=== PATIENT | male | born 1970 | race Caucasian/White ===

== ENCOUNTER 2017-11-16 12:50 | Inpatient (IN) | payer MEDICAID ==
[~2017-11-16] VITALS: Ht 177.8 cm; Wt 46.5 kg
[2017-11-16] MEDS ORDERED: TRAM50TA2 PO (13:23)
[2017-11-16] MEDS ORDERED: IBUP-1984 PO (13:23)
[2017-11-16] MEDS ORDERED: LOSA25TA96 PO (13:23)
[2017-11-16] MEDS ORDERED: ACET-2615 PO (13:23)
[2017-11-16] MEDS ORDERED: HYDR-569 PO (13:23)
[2017-11-16 13:55] LABS: BASOPHILS % (AUTO) 0.3 % (0-1); EOSINOPHILS # (AUTO) 0.2 X10'3 (0-0.9); EOSINOPHILS % (AUTO) 2.8 % (0-6); LYMPHOCYTES # (AUTO) 2.3 X10'3 (1.1-4.8); LYMPHOCYTES % (AUTO) 30.6 % (21-51); MEAN CORPUSCULAR HEMOGLOBIN 29.4 PG (27.0-31.0); MEAN CORPUSCULAR HGB CONC 34.3 % (33.0-36.5); MEAN CORPUSCULAR VOLUME 85.8 FL (78-98); MEAN PLATELET VOLUME 7.7 FL (7.4-10.4); MONOCYTES # (AUTO) 0.4 X10'3 (0-0.9); MONOCYTES % (AUTO) 5.4 % (2-12); NEUTROPHILS # (AUTO) 4.5 X10'3 (1.8-7.7); NEUTROPHILS % (AUTO) 60.9 % (42-75); PRE OP HEMOGLOBIN 14.7 g/dL (14.0-17.9); PRE OP PLATELET COUNT 251 X10'3 (140-440); RED BLOOD COUNT 5.01 X10'6 (4.70-6.10); RED CELL DISTRIBUTION WIDTH 13.4 % (11.5-14.5)
[2017-11-16 14:11] LABS: ALBUMIN 4.1 G/DL (3.4-5.0); ALBUMIN/GLOBULIN RATIO 1.1 (1.1-1.5); ALKALINE PHOSPHATASE 70 IU/L (46-116); BLOOD UREA NITROGEN 16 MG/DL (7-18); CALCIUM 9.4 MG/DL (8.5-10.1); CHLORIDE 103 MMOL/L (99-107); CREATININE 1.07 MG/DL (0.60-1.10); PRE OP ALT 40 U/L (30-65); PRE OP ANION GAP 10 (8-16); PRE OP AST 21 U/L (10-37); PRE OP BILIRUB, TOTAL 0.5 MG/DL (0.0-1.0); PRE OP GLUCOSE 92 MG/DL (70-104); PRE OP POTASSIUM 4.2 MMOL/L (3.4-5.1); PRE OP SODIUM 143 MMOL/L (135-145); TOTAL CARBON DIOXIDE 29.6 MMOL/L (24-32); TOTAL PROTEIN 7.7 G/DL (6.4-8.2); eGFR 74 ML/MIN
[2017-11-16 14:23] LABS: HEMOGLOBIN A1C 6.3 % (4.5-6.2)
[2017-11-17] VITALS (17 sets, daily range): BP systolic 113–149; BP diastolic 67–99
[2017-11-17] MEDS ORDERED: ringers solution, lacted 1,000 ML IV SCH ×2 (05:00→08:41)
[2017-11-17] MEDS ORDERED: TRANEXAMIC ACID IV ONE ×3 (05:30→17:30)
[2017-11-17] MEDS ORDERED: VANCOMYCIN INJ 1000 MG in NORMAL SALINE 250ml IV.SOLN IV ONE (05:30)
[2017-11-17] MEDS ORDERED: ceFAZolin inj. 2,000 MG in dextrose 5%-water 100 ML IV ONE (05:30)
[2017-11-17] MEDS ORDERED: NORMAL SALINE IV ONE ×3 (05:30→17:30)
[2017-11-17] MEDS ORDERED: famotidine 20mg tablet PO ONE (05:30)
[2017-11-17] MEDS ORDERED: ondansetron/PF 4mg/2ml inj IV PRN ×2 (08:45→14:35)
[2017-11-17] MEDS ORDERED: morphine 4 MG/ML inj SYRINge IV PRN ×2 (08:45)
[2017-11-17] MEDS ORDERED: meperidine/PF 50mg/ml syringe IV PRN ×3 (08:45)
[2017-11-17] MEDS ORDERED: proCHLORperazine 10 MG/2 ml inj IV PRN (08:45)
[2017-11-17] MEDS ORDERED: LIDOcaine 1% (10mg/ml) 2ml vial ONE (08:53)
[2017-11-17] MEDS ORDERED: ketorolac trometh. 30mg/ml inj. ONE (09:51)
[2017-11-17] MEDS ORDERED: vancomycin 1,000mg inj ONE (09:51)
[2017-11-17] MEDS ORDERED: ROPIVAcaine 0.5% (5mg/ml) 30ml vial ONE ×2 (09:51→14:16)
[2017-11-17] MEDS ORDERED: fentaNYL/PF 50MCG/1 ML 2ML syringe ONE (11:29)
[2017-11-17] MEDS ORDERED: MIDAZolam 1mg/ml 10ml vial ONE (11:29)
[2017-11-17] MEDS ORDERED: acetaminophen 325mg tablet PO PRN (14:35)
[2017-11-17] MEDS ORDERED: HYDROmorphone inj. 0.5 MG/0.5 ML DISP.SYRIN IV PRN ×2 (14:35)
[2017-11-17] MEDS ORDERED: magnesium hydroxide 30ml (MOM) UD suspension PO PRN (14:35)
[2017-11-17] MEDS ORDERED: diphenhydrAMINE 25mg capsule PO PRN ×2 (14:35)
[2017-11-17] MEDS ORDERED: bisacodyl 10mg suppository rectal RC PRN (14:35)
[2017-11-17] MEDS: ceFAZolin 1GM/D5W- ADD-VANTAGE 50 ML IV SCH (16:10)
[2017-11-17] MEDS: potassium cl 20mEq in 1/2 NS 1,000 ML IV SCH (16:11)
[2017-11-17] MEDS ORDERED: traMADol 50MG tablet PO PRN (17:15)
[2017-11-17] MEDS ORDERED: vancomycin/NS 1 GM ADD-VANTAGE 250 ML IV SCH (20:00)
[2017-11-17] MEDS: acetaminophen 325mg tablet PO SCH (20:09)
[2017-11-17] MEDS: gabapentin 300mg capsule PO SCH (20:09)
[2017-11-17] MEDS: ketorolac tromethamine 15mg/ml inj. IV SCH (20:10)
[2017-11-17] MEDS: sennosides 8.6mg tablet PO SCH (20:10)
[2017-11-17] MEDS: losartan 25mg tablet PO SCH (20:10)
[2017-11-18] MEDS: potassium cl 20mEq in 1/2 NS 1,000 ML IV SCH ×2 (00:23→06:34)
[2017-11-18] MEDS: ceFAZolin 1GM/D5W- ADD-VANTAGE 50 ML IV SCH (00:23)
[2017-11-18 02:00] VITALS: BP 123/74
[2017-11-18] MEDS: acetaminophen 325mg tablet PO SCH ×4 (02:12→21:39)
[2017-11-18] MEDS: ketorolac tromethamine 15mg/ml inj. IV SCH ×4 (02:12→21:40)
[2017-11-18 05:00] VITALS: BP 131/73
[2017-11-18] MEDS: oxyCODONE IR 5mg (immed. release) tablet PO PRN ×3 (05:16→16:43)
[2017-11-18 06:18] LABS: ANION GAP 9 (8-16); CHLORIDE 106 MMOL/L (99-107); POTASSIUM 4.2 MMOL/L (3.5-5.1); SODIUM 141 MMOL/L (135-145)
[2017-11-18 07:02] LABS: BASOPHILS % (AUTO) 0 % (0-1); EOSINOPHILS % (AUTO) 0.1 % (0-6); HEMOGLOBIN 12.4 g/dl (14.0-17.9); LYMPHOCYTES # (AUTO) 1.4 X10'3 (1.1-4.8); LYMPHOCYTES % (AUTO) 12.8 % (21-51); MEAN CORPUSCULAR HGB CONC 35.3 % (33.0-36.5); MEAN PLATELET VOLUME 8.3 FL (7.4-10.4); MONOCYTES # (AUTO) 0.6 X10'3 (0-0.9); MONOCYTES % (AUTO) 5.8 % (2-12); NEUTROPHILS # (AUTO) 8.9 X10'3 (1.8-7.7); NEUTROPHILS % (AUTO) 81.3 % (42-75); PLATELET COUNT 230 X10'3 (140-440); RED BLOOD COUNT 4.11 X10'6 (4.70-6.10); RED CELL DISTRIBUTION WIDTH 12.7 % (11.5-14.5); WHITE BLOOD COUNT 10.9 X10'3 (4.5-11.0)
[2017-11-18] MEDS: gabapentin 300mg capsule PO SCH ×3 (08:35→21:39)
[2017-11-18] MEDS: aspirin 325mg tablet PO SCH (08:36)
[2017-11-18 10:00] VITALS: BP 116/79
[2017-11-18 14:00] VITALS: BP 121/77
[2017-11-18 18:00] VITALS: BP 136/79
[2017-11-18] MEDS: sennosides 8.6mg tablet PO SCH (21:00)
[2017-11-18] MEDS: losartan 25mg tablet PO SCH (21:39)
[2017-11-18 23:00] VITALS: BP 130/93
[2017-11-19] VITALS (19 sets, daily range): BP systolic 88–145; BP diastolic 52–101
[2017-11-19] MEDS: acetaminophen 325mg tablet PO SCH ×3 (02:28→13:16)
[2017-11-19] MEDS: ketorolac tromethamine 15mg/ml inj. IV SCH (02:28)
[2017-11-19] MEDS: oxyCODONE IR 5mg (immed. release) tablet PO PRN ×2 (05:20→23:16)
[2017-11-19 05:27] LABS: BASOPHILS % (AUTO) 0.5 % (0-1); EOSINOPHILS # (AUTO) 0.2 X10'3 (0-0.9); EOSINOPHILS % (AUTO) 3.1 % (0-6); HEMATOCRIT 29.4 % (42.0-52.0); HEMOGLOBIN 10.3 g/dl (14.0-17.9); LYMPHOCYTES # (AUTO) 2.1 X10'3 (1.1-4.8); MEAN CORPUSCULAR HEMOGLOBIN 29.8 PG (27.0-31.0); MEAN CORPUSCULAR HGB CONC 35.1 % (33.0-36.5); MEAN CORPUSCULAR VOLUME 84.9 FL (78-98); MEAN PLATELET VOLUME 7.3 FL (7.4-10.4); MONOCYTES # (AUTO) 0.5 X10'3 (0-0.9); MONOCYTES % (AUTO) 6.8 % (2-12); NEUTROPHILS # (AUTO) 4.1 X10'3 (1.8-7.7); NEUTROPHILS % (AUTO) 58.6 % (42-75); PLATELET COUNT 214 X10'3 (140-440); RED BLOOD COUNT 3.46 X10'6 (4.70-6.10); RED CELL DISTRIBUTION WIDTH 13.7 % (11.5-14.5); WHITE BLOOD COUNT 6.9 X10'3 (4.5-11.0)
[2017-11-19] MEDS: aspirin 325mg tablet PO SCH (07:33)
[2017-11-19] MEDS: gabapentin 300mg capsule PO SCH ×3 (07:33→21:42)
[2017-11-19] MEDS: celeCOXIB 100mg capsule PO SCH ×2 (07:34→20:00)
[2017-11-19] MEDS ORDERED: acetaminophen 325mg tablet PO PRN (14:35)
[2017-11-19] MEDS ORDERED: ketorolac trometh. 30mg/ml inj. ONE (14:49)
[2017-11-19] MEDS ORDERED: ROPIVAcaine 0.5% (5mg/ml) 30ml vial ONE (14:50)
[2017-11-19] MEDS ORDERED: vancomycin 1,000mg inj ONE ×2 (14:50→17:07)
[2017-11-19] MEDS ORDERED: ringers solution, lacted 1,000 ML IV SCH (16:02)
[2017-11-19] MEDS ORDERED: meperidine/PF 50mg/ml syringe IV PRN ×3 (16:05)
[2017-11-19] MEDS ORDERED: ondansetron/PF 4mg/2ml inj IV PRN (16:05)
[2017-11-19] MEDS ORDERED: morphine 4 MG/ML inj SYRINge IV PRN ×2 (16:05)
[2017-11-19] MEDS ORDERED: proCHLORperazine 10 MG/2 ml inj IV PRN (16:05)
[2017-11-19] MEDS ORDERED: MIDAZolam 5mg/5ml vial ONE (16:31)
[2017-11-19] MEDS ORDERED: fentaNYL/PF 50MCG/1 ML 2ML syringe ONE (16:31)
[2017-11-19] MEDS ORDERED: ceFAZolin 1000mg inj ONE ×2 (17:07)
[2017-11-19] MEDS: losartan 25mg tablet PO SCH (21:42)
[2017-11-19] MEDS: sennosides 8.6mg tablet PO SCH (21:42)
[2017-11-20 02:00] VITALS: BP 119/81
[2017-11-20 05:00] VITALS: BP 133/90
[2017-11-20] MEDS: oxyCODONE IR 5mg (immed. release) tablet PO PRN ×5 (05:07→23:07)
[2017-11-20 07:33] LABS: BASOPHILS % (AUTO) 0.4 % (0-1); EOSINOPHILS # (AUTO) 0.3 X10'3 (0-0.9); EOSINOPHILS % (AUTO) 3.8 % (0-6); HEMATOCRIT 28.3 % (42.0-52.0); HEMOGLOBIN 9.8 g/dl (14.0-17.9); LYMPHOCYTES # (AUTO) 1.4 X10'3 (1.1-4.8); MEAN CORPUSCULAR HEMOGLOBIN 29.5 PG (27.0-31.0); MEAN CORPUSCULAR HGB CONC 34.6 % (33.0-36.5); MEAN CORPUSCULAR VOLUME 85.3 FL (78-98); MEAN PLATELET VOLUME 7.8 FL (7.4-10.4); MONOCYTES # (AUTO) 0.5 X10'3 (0-0.9); MONOCYTES % (AUTO) 7.1 % (2-12); NEUTROPHILS # (AUTO) 4.8 X10'3 (1.8-7.7); NEUTROPHILS % (AUTO) 68.7 % (42-75); PLATELET COUNT 193 X10'3 (140-440); RED BLOOD COUNT 3.32 X10'6 (4.70-6.10); RED CELL DISTRIBUTION WIDTH 13.6 % (11.5-14.5); WHITE BLOOD COUNT 6.9 X10'3 (4.5-11.0)
[2017-11-20] MEDS: aspirin 325mg tablet PO SCH (07:34)
[2017-11-20] MEDS: celeCOXIB 100mg capsule PO SCH ×2 (07:34→20:27)
[2017-11-20] MEDS: gabapentin 300mg capsule PO SCH ×3 (07:34→20:27)
[2017-11-20 07:39] LABS: ALBUMIN 3.2 G/DL (3.4-5.0); ANION GAP 8 (8-16); BLOOD UREA NITROGEN 14 MG/DL (7-18); BUN/CREATININE RATIO 13.7 (5.4-32.0); CALCIUM 8.4 MG/DL (8.5-10.1); CHLORIDE 105 MMOL/L (99-107); CREATININE 1.02 MG/DL (0.60-1.10); GLUCOSE 113 MG/DL (70-104); POTASSIUM 3.6 MMOL/L (3.5-5.1); SODIUM 143 MMOL/L (135-145); eGFR 79 ML/MIN
[2017-11-20 10:00] VITALS: BP 133/82
[2017-11-20 14:00] VITALS: BP 161/98
[2017-11-20 18:00] VITALS: BP 137/87
[2017-11-20] MEDS: losartan 25mg tablet PO SCH (20:27)
[2017-11-20] MEDS: sennosides 8.6mg tablet PO SCH (20:29)
[2017-11-20 22:00] VITALS: BP 145/85
[2017-11-21] MEDS: oxyCODONE IR 5mg (immed. release) tablet PO PRN ×3 (05:42→17:12)
[2017-11-21 07:00] VITALS: BP 131/87
[2017-11-21] MEDS: celeCOXIB 100mg capsule PO SCH ×2 (09:02→20:29)
[2017-11-21] MEDS: aspirin 325mg tablet PO SCH (09:02)
[2017-11-21] MEDS: gabapentin 300mg capsule PO SCH ×3 (09:02→20:29)
[2017-11-21 10:00] VITALS: BP 112/69
[2017-11-21 18:00] VITALS: BP 147/87
[2017-11-21] MEDS: losartan 25mg tablet PO SCH (20:28)
[2017-11-21] MEDS: sennosides 8.6mg tablet PO SCH (21:00)
[2017-11-21 22:45] VITALS: BP 120/75
[2017-11-22] MEDS: oxyCODONE IR 5mg (immed. release) tablet PO PRN (02:18)
[2017-11-22 06:00] VITALS: BP 114/63
[2017-11-22] MEDS: gabapentin 300mg capsule PO SCH (07:49)
[2017-11-22] MEDS: celeCOXIB 100mg capsule PO SCH (07:49)
[2017-11-22] MEDS: aspirin 325mg tablet PO SCH (07:50)
[2017-11-22 10:00] VITALS: BP 101/63
== END 2017-11-22 12:15 | disposition home or self-care (01) | DRG 302 ==
LOC: PAS IN 11-17 07:53 → EDSTATUS 11-17 11:00 → ORTHO 4S 11-17 15:50
PROVIDERS: ADMIT Orthopaedic Surgery; ATTEND Orthopaedic Surgery
PROC: 8E0YXBZ Computer Assisted Procedure of Lower Extremity (ICD-10-PCS; 2017-11-17)
PROC: 0SRD0J9 Replacement of Left Knee Joint with Synthetic Substitute, Cemented, Open Approach (ICD-10-PCS; principal; 2017-11-17 11:20)
PROC: 0JQP0ZZ Repair Left Lower Leg Subcutaneous Tissue and Fascia, Open Approach (ICD-10-PCS; 2017-11-19)
DX: M10.062 Idiopathic gout, left knee (principal); D62 Acute posthemorrhagic anemia; I10 Essential (primary) hypertension; J45.909 Unspecified asthma, uncomplicated; T81.31XA Disruption of external operation (surgical) wound, not elsewhere classified, initial encounter; T81.32XA Disruption of internal operation (surgical) wound, not elsewhere classified, initial encounter; W18.11XA Fall from or off toilet without subsequent striking against object, initial encounter; Y93.89 Activity, other specified; Y92.231 Patient bathroom in hospital as the place of occurrence of the external cause
CPT/HCPCS: 36415; 73560; 73610; 80048; 80051; 80053; 82948; 83036; 85025; 87070; 97110; 97116; 97161; 97530; A6257; A6258; A6449; A6455; A7000; A9272; C1713; C1758; C1776; J0690; J1885; J2250; J2795; J3010; J3370; J3490; J7030; J7060; J7120

== ENCOUNTER 2018-03-09 05:32 | Day surgery (SDC) | payer MEDICAID ==
[2018-03-09] VITALS (8 sets, daily range): BP systolic 122–142; BP diastolic 68–90
[~2018-03-09] VITALS: Ht 177.8 cm; Wt 142.7 kg
[~2018-03-09 05:32] MED LIST: ACET-2615 PO; IBUP-1984 PO; LOSA25TA96 PO; famotidine 20mg tablet PO ONE; ringers solution, lacted 1,000 ML IV SCH
[2018-03-09] MEDS ORDERED: LIDOcaine 1% (10mg/ml) 2ml vial ONE (05:55)
[2018-03-09] MEDS ORDERED: triamcinolone acetonide 40mg/ml inj ONE (06:29)
[2018-03-09] MEDS ORDERED: BUPIVAcaine/PF 2.5mg/ml (0.25%) 10ml vial ONE (06:30)
[2018-03-09 06:39] LABS: BASOPHILS % (AUTO) 0.4 % (0-1); EOSINOPHILS # (AUTO) 0.3 X10'3 (0-0.9); EOSINOPHILS % (AUTO) 4.3 % (0-6); HEMATOCRIT 40.1 % (42.0-52.0); HEMOGLOBIN 13.7 g/dl (14.0-17.9); LYMPHOCYTES # (AUTO) 1.8 X10'3 (1.1-4.8); LYMPHOCYTES % (AUTO) 29.4 % (21-51); MEAN CORPUSCULAR HEMOGLOBIN 28.2 PG (27.0-31.0); MEAN CORPUSCULAR HGB CONC 34.2 % (33.0-36.5); MEAN CORPUSCULAR VOLUME 82.5 FL (78-98); MEAN PLATELET VOLUME 7.5 FL (7.4-10.4); MONOCYTES # (AUTO) 0.4 X10'3 (0-0.9); MONOCYTES % (AUTO) 6.1 % (2-12); NEUTROPHILS # (AUTO) 3.6 X10'3 (1.8-7.7); NEUTROPHILS % (AUTO) 59.8 % (42-75); PLATELET COUNT 235 X10'3 (140-440); RED BLOOD COUNT 4.86 X10'6 (4.70-6.10); RED CELL DISTRIBUTION WIDTH 14.8 % (11.5-14.5); WHITE BLOOD COUNT 6.1 X10'3 (4.5-11.0)
[2018-03-09 06:49] LABS: HEMOGLOBIN A1C 6.5 % (4.5-6.2)
[2018-03-09 06:54] LABS: ALANINE AMINOTRANSFERASE 39 U/L (12-78); ALBUMIN 3.9 G/DL (3.4-5.0); ALBUMIN/GLOBULIN RATIO 1.2 (1.1-1.5); ALKALINE PHOSPHATASE 67 IU/L (46-116); ANION GAP 9 (8-16); ASPARTATE AMINO TRANSFERASE 22 U/L (10-37); BILIRUBIN,TOTAL 0.5 MG/DL (0.1-1.0); BLOOD UREA NITROGEN 14 MG/DL (7-18); BUN/CREATININE RATIO 11.6 (5.4-32.0); CALCIUM 8.9 MG/DL (8.5-10.1); CHLORIDE 104 MMOL/L (99-107); CREATININE 1.21 MG/DL (0.60-1.10); GLUCOSE 115 MG/DL (70-104); POTASSIUM 3.9 MMOL/L (3.5-5.1); SODIUM 142 MMOL/L (135-145); TOTAL CARBON DIOXIDE 29.3 MMOL/L (24-32); TOTAL PROTEIN 7.1 G/DL (6.4-8.2); eGFR 65 ML/MIN
[2018-03-09] MEDS ORDERED: NAPR-56 PO (07:15)
[2018-03-09] MEDS ORDERED: ePHEDrine 50MG/ML INJ. ONE ×2 (07:20)
[2018-03-09] MEDS ORDERED: ondansetron/PF 4mg/2ml inj ONE ×2 (07:20)
[2018-03-09] MEDS ORDERED: sevoflurane 250ml liquid IH ONE ×2 (07:20)
[2018-03-09] MEDS ORDERED: fentaNYL/PF 50MCG/1 ML 2ML syringe ONE (07:24)
[2018-03-09] MEDS ORDERED: midazolam 2 mg/2 ml injection ONE (07:25)
[2018-03-09] MEDS ORDERED: LIDOcaine 2% (20mg/ml) 5ml vial ONE (07:31)
[2018-03-09] MEDS ORDERED: propofol inj 20 ML IV ONE (07:31)
[2018-03-09] MEDS ORDERED: HYDROcodone/acetaminophen 10/325mg tab PO PRN (08:05)
== END 2018-03-09 08:50 | disposition home or self-care (01) ==
LOC: PAS 05:32
PROVIDERS: ATTEND Orthopaedic Surgery
DX: M24.662 Ankylosis, left knee (principal); I10 Essential (primary) hypertension; J45.909 Unspecified asthma, uncomplicated; E11.9 Type 2 diabetes mellitus without complications; Z79.899 Other long term (current) drug therapy; Z96.652 Presence of left artificial knee joint; Z88.1 Allergy status to other antibiotic agents; Z88.0 Allergy status to penicillin; Z88.7 Allergy status to serum and vaccine; Z88.8 Allergy status to other drugs, medicaments and biological substances; Z72.89 Other problems related to lifestyle
CPT/HCPCS: 27570; 36415; 80053; 82948; 83036; 85025; J2001; J2250; J2405; J2704; J3010; J3301; J3490; J7120